=== PATIENT | female | born 1990 | race Caucasian/White ===

== ENCOUNTER 2024-01-16 06:00 | Emergency (ER) | payer OTHER ==
[~2024-01-16 06:00] MED LIST: ABILIFY5 MG PO; CYCLOBENZAPRINE10 M1 PO; DESYREL50 MG PO
[2024-01-16] MEDS ORDERED: Orphenadrine 60 MG/2ML AMP IM ONE (08:27)
[2024-01-16] MEDS ORDERED: Ketorolac 30 MG/ML VIAL IM ONE (08:27)
[2024-02-20 05:13] LABS: PH-URINE 5.5 (5.0 - 8.0); URINE APPEARANCE CLOUDY (CLEAR); URINE BILIRUBIN NEGATIVE (NEGATIVE); URINE BLOOD NEGATIVE (NEGATIVE); URINE COLOR YELLOW (YELLOW); URINE GLUCOSE NEGATIVE (NEGATIVE); URINE KETONE NEGATIVE (NEGATIVE); URINE LEUKOCYTE ESTERASE TRACE (NEGATIVE); URINE NITRATE NEGATIVE (NEGATIVE); URINE PROTEIN(semi-quant) NEGATIVE (NEGATIVE); URINE WBC >50 /hpf (0-3)
== END 2024-01-16 08:25 | disposition home or self-care (01) ==
LOC: ED 06:00
PROVIDERS: Family Medicine
DX: S33.5XXA Sprain of ligaments of lumbar spine, initial encounter (principal); X58.XXXA Exposure to other specified factors, initial encounter
CPT/HCPCS: J1885; J2360